=== PATIENT | female | born 2000 | race American Indian/Alaskan Native ===

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

== ENCOUNTER 2020-02-10 20:58 | Emergency (ER) | payer SELFPAY ==
[2020-02-10 22:37] VITALS: BP 108/62
[2020-02-11 00:51] LABS: HCG Qualitative,Urine Positive (Negative)
--- NOTE | 2020-02-11 00:53 | Emergency Department Report ---
ED General Adult HPI - General Chief complaint: Abdominal Pain Stated complaint: ABDOMINAL PAIN Time Seen by Provider: 02/10/20 23:54 Source: patient Mode of arrival: Ambulatory Limitations: No Limitations - History of Present Illness Initial comments: Patient is a 19-year-old female who presents for bilateral lower abdominal pain x1 week. Patient states she is believe she is . Last menstrual cycle was 2 months ago. There is been no fever, chills, lightheadedness or dizziness. No chest or back pain. Patient denies vaginal discharge, no abnormal vaginal bleeding. Patient states a.m. nausea. Denies vomiting. There are no other exacerbating or relieving factors. - Related Data Previous Rx's Medication Instructions Recorded Last Taken Type Acetaminophen/Codeine [Tylenol #3] 1 tab PO Q6H PRN #20 tab 10/06/14 Unknown Rx Amoxicillin/K Clav Tab [Augmentin 1 each PO Q12HR #20 tablet 10/06/14 Unknown Rx 500 MG TAB] Loratadine (Nf) [Claritin] 10 mg PO DAILY #30 tablet 10/06/14 Unknown Rx predniSONE [Deltasone] 20 mg PO QDAY #5 tab 10/06/14 Unknown Rx Naproxen [Naprosyn] 500 mg PO BID #14 tablet 12/17/18 Unknown Rx Ibuprofen [Motrin 600 MG tab] 600 mg PO Q8H PRN #20 tablet 12/22/18 Unknown Rx Methocarbamol [Robaxin] 500 mg PO BID PRN #15 tablet 12/22/18 Unknown Rx Dicyclomine [Bentyl] 20 mg PO Q6H PRN #24 tablet 03/17/19 Unknown Rx Famotidine [Pepcid] 20 mg PO Q12H #30 tablet 03/17/19 Unknown Rx Ondansetron [Zofran Odt] 4 mg PO Q6HR PRN #20 tab.rapdis 03/17/19 Unknown Rx Albuterol Sulfate [Proventil Hfa] 6.7 gm IH TID PRN #1 hfa.aer.ad 12/16/19 Unkno wn Rx Prednisone [predniSONE 10 mg 10 mg PO .TAPER #1 tab.ds.pk 12/16/19 Unknown Rx (6-Day Pack, 21 Tabs)] cephALEXin [Keflex] 500 mg PO BID 7 Days #14 cap 02/11/20 Unknown Rx Allergies Allergy/AdvReac Type Severity Reaction Status Date / Time No Known Allergies Allergy Verified 10/06/14 01:06 ED Review of Systems ROS: Stated complaint: ABDOMINAL PAIN Other details as noted in HPI Constitutional: denies: chills, fever Eyes: denies: eye pain, eye discharge, vision change ENT: denies: ear pain, throat pain Respiratory: denies: cough, shortness of breath, wheezing Cardiovascular: denies: chest pain, palpitations Endocrine: no symptoms reported Gastrointestinal: abdominal pain, nausea. denies: vomiting, diarrhea, constipation, melena Genitourinary: denies: urgency, dysuria, frequency, hematuria, discharge, abnormal menses, dyspareunia Musculoskeletal: denies: back pain, joint swelling, arthralgia Skin: denies: rash, lesions Neurological: denies: headache, weakness, paresthesias Psychiatric: denies: anxiety, depression Hematological/Lymphatic: denies: easy bleeding ED Past Medical Hx - Past Medical History Previous Medical History?: Yes Hx Asthma: Yes - Surgical History Past Surgical History?: No - Social History Smoking Status: Never Smoker Substance Use Type: None - Medications Home Medications: Home Medications Medication Instructions Recorded Confirmed Last Taken Type Acetaminophen/Codeine [Tylenol #3] 1 tab PO Q6H PRN #20 tab 10/06/14 Unknown Rx Amoxicillin/K Clav Tab [Augmentin 1 each PO Q12HR #20 tablet 10/06/14 Unknown Rx 500 MG TAB] Loratadine (Nf) [Claritin] 10 mg PO DAILY #30 tablet 10/06/14 Unknown Rx predniSONE [Deltasone] 20 mg PO QDAY #5 tab 10/06/14 Unknown Rx Naproxen [Naprosyn] 500 mg PO BID #14 tablet 12/17/18 Unknown Rx Ibuprofen [Motrin 600 MG tab] 600 mg PO Q8H PRN #20 tablet 12/22/18 Unknown Rx Methocarbamol [Robaxin] 500 mg PO BID PRN #15 tablet 12/22/18 Unknown Rx Dicyclomine [Bentyl] 20 mg PO Q6H PRN #24 tablet 03/17/19 Unknown Rx Famotidine [Pepcid] 20 mg PO Q12H #30 tablet 03/17/19 Unknown Rx Ondansetron [Zofran Odt] 4 mg PO Q6HR PRN #20 tab.rapdis 03/17/19 Unknown Rx Albuterol Sulfate [Proventil Hfa] 6.7 gm IH TID PRN #1 hfa.aer.ad 12/16/19 Unknown Rx Prednisone [predniSONE 10 mg 10 mg PO .TAPER #1 tab.ds.pk 12/16/19 Unknown Rx (6-Day Pack, 21 Tabs)] cephALEXin [Keflex] 500 mg PO BID 7 Days #14 cap 02/11/20 Unknown Rx ED Physical Exam - General Limitations: No Limitations General appearance: alert, in no apparent distress - Head Head exam: Present: atraumatic, normocephalic - Eye Eye exam: Present: normal appearance, PERRL, EOMI Pupils: Present: normal accommodation - ENT ENT exam: Present: normal exam, normal orophraynx, mucous membranes moist, TM's normal bilaterally, normal external ear exam - Neck Neck exam: Present: normal inspection, full ROM. Absent: tenderness - Respiratory Respiratory exam: Present: normal lung sounds bilaterally. Absent: respiratory distress, wheezes, rhonchi, chest wall tenderness - Cardiovascular Cardiovascular Exam: Present: regular rate, normal rhythm, normal heart sounds. Absent: systolic murmur, diastolic murmur, rubs, gallop - GI/Abdominal GI/Abdominal exam: Present: soft, normal bowel sounds. Absent: distended, tenderness, guarding, rebound, rigid, bruit, hernia - Rectal Rectal exam: Present: deferred - External exam: Present: normal external exam, swelling Speculum exam: Present: normal speculum exam - Extremities Exam Extremities exam: Present: normal inspection, full ROM. Absent: tenderness - Back Exam Back exam: Present: normal inspection, paraspinal tenderness. Absent: CVA tenderness (R), CVA tenderness (L) - Neurological Exam Neurological exam: Present: alert, oriented X3, CN II-XII intact - Psychiatric Psychiatric exam: Present: normal affect, normal mood - Skin Skin exam: Present: warm, dry, intact, normal color ED Course Vital Signs 02/10/20 22:34 Temperature 98.3 F Pulse Rate 73 Respiratory 18 Rate Blood Pressure 108/62 O2 Sat by Pulse 94 Oximetry ED Medical Decision Making - Lab Data Result diagrams: 02/11/20 01:16 Labs 02/10/20 02/11/20 02/11/20 Unknown 01:16 01:16 WBC 7.4 RBC 4.49 Hgb 12.8 Hct 38.8 MCV 86 MCH 28 MCHC 33 RDW 12.9 L Plt Count 227 Lymph % (Auto) 29.7 [place] % (Auto) 8.0 H Eos % (Auto) 5.7 H Baso % (Auto) 0.5 Lymph # (Auto) 2.2 [place] # (Auto) 0.6 Eos # (Auto) 0.4 Baso # (Auto) 0.0 Seg Neutrophils % 56.1 Seg Neutrophils # 4.2 HCG, Quant 7918 H Urine Color Yellow Urine Turbidity Clear Urine pH 7.0 Ur Specific [place] 1.028 Urine Protein 30 mg/dl Urine Glucose (UA) Neg Urine Ketones Neg Urine Blood Neg Urine Nitrite Neg Ur Reducing Substances Not Reportable Urine Bilirubin Neg Urine Ictotest Not Reportable Urine Urobilinogen 2.0 Ur Leukocyte Esterase Sm Urine WBC (Auto) 28.0 H Urine RBC (Auto) 8.0 U Epithel Cells (Auto) 8.0 Urine Bacteria (Auto) 2+ Urine Mucus 1+ Urine HCG, Qual Positive A - Radiology Data Radiology results: report reviewed, image reviewed Findings Reporting MD: Sasha Hall Dictation Time: February 11, 2020 01:30 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 Clinical Gestational Age (GA): 9 weeks 6 days TECHNIQUE: Transabdominal. COMPARISON: None available. FINDINGS: GESTATIONAL SAC: Well-defined oval shape and intrauterine in location. Gestational sac diameter 10.8 mm, compatible with 5 weeks 6 days. YOLK SAC: Not visualized. EMBRYO/FETUS: Not yet visualized ADNEXA: The ovaries are not visualized. No adnexal mass or abnormality. FREE FLUID: None. ADDITIONAL FINDINGS: None. IMPRESSION: 1. An intrauterine gestational sac is seen measuring 5 weeks 6 days. A pole and yolk sac are not yet visualized at this early gestational age. Recommend correlation with serial hCG and follow-up ultrasound as needed. Signer Name: Sasha Hall MD Signed: 02/11/2020 1:30 AM Workstation Name: [id number] - Medical Decision Making US OB, Single IUP 5 weeks 6 days, Early : no hear tones, us:pos fo leuk, plan , Keflex sachin, follow up with OBGYN n 2-3s, pt verbalized agreement and understanding of discharge plan. Critical care attestation.: If time is entered above; I have spent that time in minutes in the direct care of this critically ill patient, excluding procedure time. ED Disposition Clinical Impression: UTI (urinary tract infection) during Qualifiers: Trimester: first trimester Qualified Code(s): O23.41 - Unspecified infection of urinary tract in , first trimester Qualifiers: Weeks of gestation: less than 8 weeks Qualified Code(s): Z3A.01 - Less than 8 weeks gestation of Disposition: DC- TO HOME OR SELFCARE Is pt being admited?: No Does the pt Need Aspirin: No Condition: Stable Instructions: Abdominal Pain During , [id number], Care, and Urinary Tract Infection, Abdominal Pain (ED) Additional Instructions: positive 5 weeks and 6 days Prescriptions: cephALEXin [Keflex] 500 mg PO BID 7 Days #14 cap Referrals: ROBERT BAKER MD [Staff Physician] - 3-5 Days Forms: Work/School Release Form(ED) Time of Disposition: 02:43
[2020-02-11 01:08] LABS: Bacteria,Urine 2+ /HPF (Negative); Bilirubin,Urine NEG (Negative); Blood,Urine NEG (Negative); Color,Urine Yellow (Yellow); Mucus,Urine 1+ /HPF
[2020-02-11 02:02] LABS: Basophils % (Auto) 0.5 % (0.0-1.8); Eosinophils # (Auto) 0.4 K/mm3 (0.0-0.4); Eosinophils % (Auto) 5.7 % (0.0-4.3); Hematocrit 38.8 % (30.3-42.9); Hemoglobin 12.8 gm/dl (10.1-14.3); Lymphocytes # (Auto) 2.2 K/mm3 (1.2-5.4); Lymphocytes % (Auto) 29.7 % (13.4-35.0); Mean Corpuscular HGB Conc 33 % (30-34); Mean Corpuscular Volume 86 fl (79-97); Monocytes # (Auto) 0.6 K/mm3 (0.0-0.8); Platelet Count 227 K/mm3 (140-440); Red Blood Count 4.49 M/mm3 (3.65-5.03); Red Cell Distribution Width 12.9 % (13.2-15.2)
--- NOTE | 2020-02-11 02:35 | Ultrasound Report ---
ULTRASOUND OBSTETRIC INDICATION / CLINICAL INFORMATION: pos preg test with abd pain. Clinical Gestational Age (GA): 9 weeks 6 days TECHNIQUE: Transabdominal. COMPARISON: None available. FINDINGS: GESTATIONAL SAC: Well-defined oval shape and intrauterine in location. Gestational sac diameter 10.8 mm, compatible with 5 weeks 6 days. YOLK SAC: Not visualized. EMBRYO/FETUS: Not yet visualized ADNEXA: The ovaries are not visualized. No adnexal mass or abnormality. FREE FLUID: None. ADDITIONAL FINDINGS: None. IMPRESSION: 1. An intrauterine gestational sac is seen measuring 5 weeks 6 days. A pole and yolk sac are no t yet visualized at this early gestational age. Recommend correlation with serial hCG and follow-up u ltrasound as needed. Signer Name: Sasha Hall MD Signed: 02/11/2020 2:30 AM Workstation Name: [id number]
== END 2020-02-11 03:00 | disposition home or self-care (01) ==
LOC: ED 20:58
DX: O23.41 Unspecified infection of urinary tract in pregnancy, first trimester (principal); Z3A.08 8 weeks gestation of pregnancy; J45.909 Unspecified asthma, uncomplicated; Z79.899 Other long term (current) drug therapy
CPT/HCPCS: 36415; 76801; 81001; 81025; 84702; 85025; 87086

== ENCOUNTER 2020-07-29 00:39 | Outpatient (CLI) | payer MEDICAID ==
[2020-07-29 07:16] VITALS: BP 102/63
[2020-07-29 07:40] LABS: Bilirubin,Urine NEG (Negative); Blood,Urine NEG (Negative); Color,Urine Yellow (Yellow); Mucus,Urine 3+ /HPF; Protein,Urine <15 mg/dL mg/dL (Negative); Urobilinogen,Urine < 2.0 mg/dL (<2.0)
== END 2020-07-29 08:20 | disposition home or self-care (01) ==
LOC: ED 00:39 → EDSTATUS 04:18 → TRG 04:27 → APU 04:27 → TRG 08:20
PROVIDERS: ATTEND Obstetrics & Gynecology
DX: Z34.93 Encounter for supervision of normal pregnancy, unspecified, third trimester (principal); Z3A.29 29 weeks gestation of pregnancy
CPT/HCPCS: 59025; 81001

== ENCOUNTER 2020-09-08 16:59 | Outpatient (CLI) | payer MEDICAID ==
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
[2020-09-09 02:38] VITALS: BP 97/54
== END 2020-09-09 02:45 | disposition home or self-care (01) ==
LOC: TRG 16:59 → APU 17:41 → TRG 09-09 02:45
PROVIDERS: ATTEND Obstetrics & Gynecology
DX: O26.893 Other specified pregnancy related conditions, third trimester (principal); R10.9 Unspecified abdominal pain; Z3A.37 37 weeks gestation of pregnancy
CPT/HCPCS: 59025; 76815; 76819; 85460

== ENCOUNTER 2020-10-07 11:45 | Outpatient (CLI) | payer MEDICAID ==
[2020-10-07 12:20] VITALS: BP 99/61
== END 2020-10-07 13:18 | disposition home or self-care (01) ==
LOC: TRG 11:45 → APU 11:48 → TRG 13:18
DX: Z34.93 Encounter for supervision of normal pregnancy, unspecified, third trimester (principal); Z3A.39 39 weeks gestation of pregnancy
CPT/HCPCS: 59025